=== PATIENT | male | born 1935 | race Caucasian/White ===

== ENCOUNTER → 2016-08-02 | Day surgery (SDC) | payer MEDICARE, OTHER ==
--- NOTE | 2016-08-01 18:56 | Opthalmology H&P ---
Ophthalmology H&P H&P Chief Complaint: decreased vision in left eye HPI Vision Affects Ability to: read, watch TV Past Ocular History: opacification, other - Pterygium surgery left eye HPI Narrative The patient is 80 y/o male with blurred vision, difficulty driving and reading since a year ago Exam Visual Acuity: 20/50 Tension: 14 Eye Exam: normal OU: anterior chambers, findings: corneas - nasal scar of previous pterygium, external exam - senile ptosis and dermatochalasis, fundus exam - ERM OD, lens - PCIOL OD, 2+ NSC, 3+ CC Assessment/Plan Treatment Plan: cataract extraction w/ lens implant Goals of Treatment: improvement of vision, enhance quality of life Attestation Attestation The risks and benefits of the surgery as well as alternative procedures were explained to the patient in detail. Maribell Perez M.D. Aug 01, 2016 18:56
--- NOTE | 2016-08-01 18:57 | Pre-Procedure Note/Attestation ---
Pre-Procedure Note/Attestation Complete Prior to Procedure Planned Procedure: left Procedure Narrative: Cataract extraction and intra-ocular lens placement Indications for Procedure Pre-Operative Diagnosis: Visually significant cataract Attestation I attest that I discussed the nature of the procedure; its benefits; risks and complications; and alternatives (and the risks and benefits of such alternatives ), prior to the procedure, with the patient (or the patient's legal commercial representative). I attest that, if there was a reasonable possibility of needing a blood transfusion, the patient (or the patient's legal commercial representative) was given the [facility] standardized written summary, pursuant to the Castro Carmen Blood Safety Act ([place] Health and Safety Code # 1645, as amended). I attest that I re-evaluated the patient just prior to the surgery and that there has been no change in the patient's H&P, except as documented below: Maribell Perez M.D. Aug 01, 2016 18:57
[~2016-08-02] VITALS: Ht 165.1 cm; Wt 65.8 kg
[2016-08-02] VITALS (8 sets, daily range): BP systolic 147–177; BP diastolic 75–90
[~2016-08-02] MED LIST: ASPIR 8181 MG ORAL; ATORVASTATIN CA20 MG ORAL; Akten 3.5% 1ml Btl ONE; BSS 15ml BTL ONE; BSS 500ml btl ONE; Carbachol 0.01% Op Soln 1.5ml vial ONE; Diclofenac Sod 0.1% Op Soln ONE; EPINEPHrine 1mg/1ml Amp ONE; GINKGO BILOBA120 M1 PO; Gatifloxacin Opth Solution 0.5% ONE; Healon Duet Dual Pack ONE; KETOROLAC TROMET5 ML OP; LOSARTAN POTASS25 MG ORAL; LR 1000ml 1,000 ML IVLG SCH; LR 1000ml ONE; Lidocaine 1% MPF 10mg/ml 5ml ONE; Lidocaine 4% Amp ONE; Maxitrol Opth Oint 3.5gm ONE; Midazolam 2mg/2ml Inj ONE; PREDNISOLONE ACE5 ML OP; Phenylephrine 10% Opth Soln 5ml ONE; Povidone-Iodine 5% opth solution ONE; Tropicamide 1% Opth Soln ONE; VIGAMOX1 DROP RIGHT EYE; acetaZOLAMIDE 125mg tab ORAL ONE; fentaNYL 100 mcg/2 mL IV ONE
[2016-08-02] MEDS: Tropicamide 1% Opth Soln LEFT EYE SCH ×3 (10:11→10:29)
[2016-08-02] MEDS: Akten 3.5% 1ml Btl LEFT EYE SCH ×3 (10:11→10:28)
[2016-08-02] MEDS: Diclofenac Sod 0.1% Op Soln LEFT EYE SCH ×3 (10:11→10:29)
[2016-08-02] MEDS: Phenylephrine 10% Opth Soln 5ml LEFT EYE SCH ×3 (10:12→10:29)
[2016-08-02] MEDS: Gatifloxacin Opth Solution 0.5% LEFT EYE SCH ×3 (10:12→10:29)
--- NOTE | 2016-08-02 12:56 | Anethesia Preoperative Eval ---
Anesthesia Pre-op PMH/ROS General Date of Evaluation: Aug 02, 2016 Time of Evaluation: 12:20 Anesthesiologist: Alejandro ASA Score: ASA 2 Mallampati Score Class I : Soft palate, uvula, fauces, pillars visible Class II: Soft palate, uvula, fauces visible Class III: Soft palate, base of uvula visible Class IV: Only hard plate visible Mallampati Classification: Class II Surgeon: Ana Diagnosis: Left eye cataract Surgical Procedure: left eye cataract extraction with IOL Anesthesia History: none Family History: no anesthesia problems Allergies: Coded Allergies: BANANA (Verified Allergy, Severe, RASHES AND SCRATCHES OF SKIN, 01/26/16) ORANGE (Verified Allergy, Severe, RASHES AND SCRATCHES OF SKIN, 01/26/16) Medications: see eMAR Past Medical History Cardiovascular: Reports: HTN Pulmonary: Denies: COPD, ERLINDA, asthma, other Gastrointestinal/Genitourinary: Denies: CRI, ESRD, GERD, other Neurologic/Psychiatric: Denies: CVA, TIA, dementia, depression/anxiety, other Endocrine: Denies: DM, hypothyroidism, other, steroids HEENT: Reports: cataract (L) Hematology/Immune: Denies: DVT, anemia, bleeding disorder, other Musculoskeletal/Integumentary: Denies: DDD, DJD, OA, RA, edema, other PMH Narrative: HTN PSxH Narrative: Right cataract Anesthesia Pre-op Phys. Exam Physician Exam Last Vital Signs Date Time Temp Pulse Resp B/P Pulse Ox O2 Delivery O2 Flow Rate FiO2 08/02/16 10:31 97.7 52 20 148/76 96 Room Air Constitutional: NAD Neurologic: CN 2-12 intact Cardiovascular: RRR Respiratory: CTA Gastrointestinal: S/NT/ND Airway Exam Mallampati Score: Class II MO: full ROM: full Teeth: missing Dentures: no lower, no upper FARIDA DAHL D.O. Aug 02, 2016 12:56
--- NOTE | 2016-08-02 13:33 | Immediate Post-Op Evaluation ---
Immediate Post-Op Evalulation Immediate Post-Op Evalulation Procedure: left cataract extraction with IOL placement Date of Evaluation: Aug 02, 2016 Time of Evaluation: 13:32 IV Fluids: 500ml Blood Products: none Estimated Blood Loss: minimal Urinary Output: due to void Blood Pressure Systolic: 147 Blood Pressure Diastolic: 90 Pulse Rate: 50 Respiratory Rate: 16 O2 Sat by Pulse Oximetry: 96 Temperature (Fahrenheit): 98.1 Pain Score (1-10): 0 Nausea: No Vomiting: No Complications none Patient Status: awake, reacts Hydration Status: adequate Drug: n/a FARIDA DAHL D.O. Aug 02, 2016 13:33
--- NOTE | 2016-08-02 13:35 | Operative Note - PDOC ---
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 Maribell Perez Anesthesiologist: Dr. Allen Anesthesia: MAC Specimen: none Complications: none Condition: stable Estimated Blood Loss: none Drains: none Implant(s) used?: Yes - PCIOL ZCBOO + 24.0 Indications for Procedure Visually significant cataract Description of Procedure See separate op note Maribell Perez M.D. Aug 02, 2016 13:35
--- NOTE | 2016-08-02 13:38 | Discharge Summary ---
Discharge Summary Hospital Course Date of Admission 08/02/16 Date of Discharge 08/02/16 Admitting Diagnosis Visually significant cataract HPI Vandana Garrett is a 81 year old male who was admitted on for Cat Lt Eye Procedures Complex cataract extraction and IOL insertion Limbal relaxing incision Hospital Course no event Discharge Condition Upon Discharge: stable Discharge Disposition Patient was discharged to home with her daughter Discharge Diagnoses: Discharge Instructions Discharge Instructions Follow up with: Dr. Perez the next day Call MD/Return to Hospital if: pain Services Upon Discharge: other Diet: regular Activity: light activity Special Instructions No bending, straining, heavy lifting Keep the patch over the eye For Surgical Patients Dressing Care: keep dry and clean May shower: No Contact your physician for: Maribell Jones M.D. Aug 02, 2016 13:38
--- NOTE | 2016-08-02 13:38 | 48 Hour Post Anesthesia Eval ---
Post Anesthesia Evaluation Procedure: left cataract extraction with IOL placement Date of Evaluation: Aug 02, 2016 Time of Evaluation: 13:37 Blood Pressure Systolic: 177 0: 88 Pulse Rate: 51 Respiratory Rate: 16 Temperature (Fahrenheit): 98.1 O2 Sat by Pulse Oximetry: 96 Nausea: No Vomiting: No Pain Intensity: 0 Hydration Status: adequate Cardiopulmonary Status: stable Mental Status/LOC: patient returned to baseline Follow-up Care/Observations: as per surgeon Post-Anesthesia Complications: none Follow-up care needed: N/A FARIDA DAHL D.O. Aug 02, 2016 13:38
--- NOTE | 2016-08-02 13:47 | Operative Note - PDOC ---
Opthamology Op Report Surgical Report PREPROCEDURE DIAGNOSIS: Visually significant cataract, left eye Floppy iris syndrome Astigmatism POSTPROCEDURE DIAGNOSIS: Visually significant cataract, left eye Floppy iris syndrome Astigmatism PROCEDURE: Complex Phacoemulsification with Intra-ocular lens placement, left eye Limbal relaxing incision, left eye SURGEON: Maribell Perez MD ANESTHESIA: MAC, local anesthesia IMPLANT(S): CARLEY IOL: ZCBOO, Power +24.00 Serial #[id number] DRAINS: None SPECIMEN: None ESTIMATED BLOOD LOSS: None BLOOD PRODUCTS ADMINISTERED: None COMPLICATIONS: None FINDINGS: Opacified lens, floppy iris INDICATIONS FOR PROCEDURE: This patient is 81 year old male with Visually significant cataract, who presented with blurred vision and difficulty reading and driving. Past medical history is significant for HTN, HLD. Past surgical history is significant for cataract surgery, right eye, Pterygium surgery both eye, piggy bag IOL right eye. The patient is using ASA 81mg, Losartan. There is no known allergy. There is no history of glaucoma or any other hereditary ophthalmic disease in the family. Review of system is negative except for the blurred vision in the affected eye. VA in the operated eye 20/40, IOP14 mmHg. Pupils are reactive with no RAPD. Slit lamp exam: cornea is clear, deep anterior chamber, 2+ cortical cataract, 2+ nuclear sclerosis cataract, there is no psudoexfoliation present at the pupillary margin or anterior lens capsule. On funds exam cup/disc ratio is 0.2, macula shows normal foveal reflex, retina is attached. Risk, benefit and alternative to cataract surgery was explained to the patient, who agreed to proceed with the procedure. The informed consent was signed by the patient. DESCRIPTION OF PROCEDURE: The patient was seen by me along with anesthesia team in the pre op area and the surgical site was marked and confirmed. Anesthetic drops along with dilating drops was instilled in surgical eye in the pre op. The patient was then brought back to the operating trey placed in supine position. The eye was prepped with Betadine 5% and draped in sterile manner for the ophthalmic surgery. An eyelid speculum was was placed to keep the eyelid open. Paracentesis wound was made superiorly and inferiorly though clear cornea near the limbus using 1.2mm side-port blade. Preservative free Lidocaine 1% mixed with epinephrine 1/ 10,000 and BSS was injected into the anterior chamber through the paracentesis wound. The anterior chamber was inflated with viscoelastic (viscoat). A keratom blade was used to make a bi-planar, shelved, clear corneal incision, starting at temporal limbus and then tunneling through clear cornea to enter the anterior chamber. A circular curvilinear continue capsulorrhexis was initiated by cystotom and continued with utrata forceps. The capsular flap then was removed. Hydrodissection and hydrodelineation was performed using BSS until the lens was freely rotatable. The lens nucleus was then removed using the phacoemulsification handpiece. The residual cortex was removed with the bimanual irrigation/aspiration handpieces. The capsular bag and anterior chamber were inflated with viscoelastic, and the IOL was inserted into the capsular bag. Using atomic knife an incision of 20 degree was placed over the limbus between 70 to 90 degree. Using irrigation/Aspiration handpiece on the aspiration mode Healon was removed from the anterior and posterior chamber. Main wound and paracentesis wound was hydrated by BSS. The speculum was removed. Vigamox drops and Sterile antibiotic/steroid ointment was applied to the eye. A cotton patch and clear shield were placed over the operative eye. The patient was transferred to the recovery room in stable condition. MD Barry Shields [id number] Maribell Perez M.D. Aug 02, 2016 13:47
== END | disposition home or self-care (01) ==
LOC: SUR 09:37
DX: H25.12 Age-related nuclear cataract, left eye (principal); H25.012 Cortical age-related cataract, left eye; H52.202 Unspecified astigmatism, left eye; H21.81 Floppy iris syndrome; E78.5 Hyperlipidemia, unspecified; I10 Essential (primary) hypertension; M54.5 Low back pain; M19.90 Unspecified osteoarthritis, unspecified site; G62.9 Polyneuropathy, unspecified; Z91.018 Allergy to other foods
CPT/HCPCS: 66984; J0171; J2250; J3010; J7120; V2632; 94003; 94150